=== PATIENT | male | born 1960 | race Caucasian/White ===

== ENCOUNTER 2016-05-08 13:16 | Emergency (ER) | payer OTHER ==
[~2016-05-08] VITALS: Ht 165.1 cm; Wt 100.0 kg
[~2016-05-08 13:16] MED LIST: DOXY100T PO; PRED20 PO; Z.0.NO CURRENT MEDS
[2016-05-08 13:22] VITALS: BP 177/111; PULSE 91; RESP 18; TEMP 98.6; O2SAT 97
[2016-05-08] MEDS ORDERED: SODIUM CHLOR 0.9% 1000 ML INJ 1,000 ML IV SCH (14:41)
[2016-05-08] MEDS ORDERED: SODIUM CHLORIDE 0.9% FLUSH 5 ML FLUSH IVF PRN (14:45)
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
[2016-05-08 15:17] LABS: AUTOMATED NEUTROPHIL # 5.5 TH/MM3 (1.8-7.7); BASOPHIL # 0.4 TH/MM3 (0-0.2); EOSINOPHIL # 0.1 TH/MM3 (0-0.4); EOSINOPHIL % 1.2 % (0.0-4.0); HEMO FLAGS DIFF FINAL; LYMPH % 24.1 % (9.0-44.0); LYMPHOCYTE # 2.2 TH/MM3 (1.0-4.8); MEAN CELL VOLUME 88.3 FL (80.0-100.0); MONO % 7.6 % (0.0-8.0); NEUT % 63.1 % (16.0-70.0); PLATELET COUNT 174 TH/MM3 (150-450); RED CELL DISTRIBUTION WIDTH 11.9 % (11.6-17.2); WHITE BLOOD COUNT 8.9 TH/MM3 (4.0-11.0)
[2016-05-08 15:28] LABS: BICARBONATE 24.8 MEQ/L (21.0-32.0)
[2016-05-08 15:32] LABS: APTT (PATIENT) 24.2 SEC (24.3-30.1); POTASSIUM 4.1 MEQ/L (3.5-5.1); PROTHROMBIN TIME - PATIENT 10.5 SEC (9.8-11.6)
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
[2016-05-08] MEDS ORDERED: KETOROLAC TROMETHAMINE 30 MG/ML (IVP) VIAL IV PUSH ONE (16:45)
[2016-05-08 16:46] VITALS: BP 156/82; PULSE 73; RESP 16; O2SAT 99
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
[2016-05-08] MEDS ORDERED: IBUP-232 PO (18:05)
[2016-05-08] MEDS ORDERED: DIAZ5 PO (18:05)
--- NOTE | 2016-05-10 08:54 | EKG ---
Date Performed: 05/08/2016 Time Performed: 15:05:30 PTAGE: 55 years EKG: Sinus rhythm Normal ECG NO PREVIOUS TRACING DOCTOR: Wallace Ann Interpretating Date/Time 05/10/2016 08:53:54
== END 2016-05-08 18:13 | disposition home or self-care (01) ==
LOC: PHED 13:16
DX: S06.0X0A Concussion without loss of consciousness, initial encounter (principal); S13.4XXA Sprain of ligaments of cervical spine, initial encounter; S43.402A Unspecified sprain of left shoulder joint, initial encounter; S20.219A Contusion of unspecified front wall of thorax, initial encounter; V43.52XA Car driver injured in collision with other type car in traffic accident, initial encounter; Y93.9 Activity, unspecified; Y92.9 Unspecified place or not applicable; Y99.9 Unspecified external cause status
CPT/HCPCS: 70450; 71010; 72125; 73030; 80048; 85025; 85610; 85730; 93005; 96361; 96374; 99284; J1885; J7030